=== PATIENT | female | born 1960 | race Caucasian/White ===

== ENCOUNTER 2017-07-26 21:59 | Emergency (ER) | payer OTHER ==
[~2017-07-26] VITALS: Ht 162.6 cm; Wt 97.1 kg
[~2017-07-26 21:59] MED LIST: GLUCOPHAGE XR500 MG PO; HYDROCODON-ACE1 EA10 PO; KOMBIGLYZE XR1 EAC1 PO; LEVOTHYROXINE50 MCG PO; LIPITOR20 MG PO; LISINOPRIL10 MG PO; VANIQA45 GM; VITAMIN D250000 UNIT PO
[2017-07-26] MEDS ORDERED: IBUPROFEN600 MG PO (23:26)
[2017-07-26] MEDS ORDERED: CYCLOBENZAPRINE10 MG PO (23:26)
== END 2017-07-26 23:35 | disposition home or self-care (01) ==
LOC: ED 21:59
DX: S30.0XXA Contusion of lower back and pelvis, initial encounter (principal); W22.8XXA Striking against or struck by other objects, initial encounter; E11.9 Type 2 diabetes mellitus without complications; I10 Essential (primary) hypertension; Z87.891 Personal history of nicotine dependence; Z79.899 Other long term (current) drug therapy
CPT/HCPCS: 72100; 99283

== ENCOUNTER 2020-12-08 13:58 | Inpatient (IN) | payer OTHER ==
[~2020-12-08] VITALS: Ht 162.6 cm; Wt 108.4 kg
[~2020-12-08 13:58] MED LIST changes: +CYCLOBENZAPRINE10 MG PO; +IBUPROFEN600 MG PO
[2020-12-08] MEDS ORDERED: GLIMEPIRIDE4 MG PO (16:41)
--- NOTE | 2020-12-08 20:07 | EKG ---
[facility] [address] [facility] [place], [place] [address] Signed Normal sinus rhythm Low voltage QRS Septal infarct , age undetermined Abnormal ECG No previous ECGs available Confirmed by JOSÉ LOUIS MD ([id number]) on 12/08/2020 8:07:00 PM Electronically Signed By: JOSÉ LOUIS MD 12/08/20 2007 PATIENT NAME: JYAY CAMARILLO Electrocardiogram DATE OF : 62 PHYSICIAN: JOSÉ LOUIS MD REPORT #: [id number] REPORT IS CONFIDENTIAL AND NOT TO BE RELEASED WITHOUT AUTHORIZATION
[2020-12-09] MEDS ORDERED: CLOPIDOGREL75 MG PO (10:07)
[2020-12-09] MEDS ORDERED: ATORVASTATIN CA20 MG PO (10:07)
[2020-12-09] MEDS ORDERED: ASPIRIN325 MG PO (10:08)
== END 2020-12-09 17:35 | disposition home or self-care (01) | DRG 68 ==
LOC: ED 13:58 → MS 16:32
PROVIDERS: ADMIT Internal Medicine; ATTEND Internal Medicine
DX: I65.02 Occlusion and stenosis of left vertebral artery (principal); R29.810 Facial weakness; R51.9 Headache, unspecified; R20.2 Paresthesia of skin; E11.9 Type 2 diabetes mellitus without complications; Z53.29 Procedure and treatment not carried out because of patient's decision for other reasons; I10 Essential (primary) hypertension; Z87.891 Personal history of nicotine dependence; Z79.899 Other long term (current) drug therapy; Z79.84 Long term (current) use of oral hypoglycemic drugs; Z90.49 Acquired absence of other specified parts of digestive tract; Z90.89 Acquired absence of other organs; Z90.711 Acquired absence of uterus with remaining cervical stump
CPT/HCPCS: 70450; 70496; 70498; 70551; 71045; 80048; 80053; 81001; 84484; 85025; 85610; 85730; 93005; 93010; 99285-25; J1650; J7030; Q9967; U0003

== ENCOUNTER 2021-06-21 12:02 | Emergency (ER) | payer OTHER ==
[~2021-06-21] VITALS: Ht 162.6 cm; Wt 108.0 kg
[~2021-06-21 12:02] MED LIST changes: +ASPIRIN325 MG PO; +ATORVASTATIN CA20 MG PO; +CLOPIDOGREL75 MG PO; +GLIMEPIRIDE4 MG PO
[2021-06-21] MEDS ORDERED: OXYBUTYNIN CHLOR5 MG PO (14:12)
[2021-06-21] MEDS ORDERED: ICOSAPENT ETHYL1 GM PO (14:14)
== END 2021-06-21 15:00 | disposition home or self-care (01) ==
LOC: ED 12:02
DX: I80.8 Phlebitis and thrombophlebitis of other sites (principal); E11.9 Type 2 diabetes mellitus without complications; I10 Essential (primary) hypertension; Z87.891 Personal history of nicotine dependence; Z79.899 Other long term (current) drug therapy; Z79.82 Long term (current) use of aspirin; Z79.84 Long term (current) use of oral hypoglycemic drugs
CPT/HCPCS: 99283

== ENCOUNTER 2024-08-20 11:00 | Day surgery (SDC) | payer MEDICARE, OTHER ==
[~2024-08-20] VITALS: Ht 162.6 cm; Wt 113.6 kg
[~2024-08-20 11:00] MED LIST changes: +ALOGLIPTIN25 MG PO; +ATIVAN0.5 MG PO; +ATORVASTATIN CA80 MG PO; +CLARITIN10 M2 PO; +COLLAGEN 15001 EACH PO; +ESTRACE42.5 GM VAGINAL; +EVENING PRIMRO500 M1 PO; +HYDROCORTISO453.6 G2 TOP; +IBLOOD GLUCOSE TEST STRIP 1 EA TEST VI PRN; +ICOSAPENT ETHYL1 GM PO; +LACTATED RINGER'S 1,000 ML IV SCH; +LIDOCAINE HCL 1% 5 ML SDV INJ ONE; +LIDOCAINE HCL 4% 50 ML BTL TOP SCH; +LOW DOSE ASPIRI81 MG PO; +MAGNESIUM200 MG PO; +MIDAZOLAM HCL 5 MG/5 ML VIAL IV PRN; +MOUNJARO2.5 MG/0.5 SUB-Q; +OXYBUTYNIN CHLOR5 MG PO; +PANTOPRAZOLE SO40 MG PO; +PROLASTIN1000 MG/20 IV; +SULFAMETHOXAZO1 EAC1 PO; +TRULICITY1.5 MG/0.5 SUB-Q; +VITAMIN B COMP1 EACH PO; +VITAMIN D350 MC3 PO; +VITAMIN K2 (M100 MCG PO; +ZINC50 MG PO; +fentaNYL citrate 100 MCG/2 ML VIAL IV PRN
[2024-08-20 11:17] VITALS: BP 135/76
[2024-08-20] MEDS ORDERED: fentaNYL citrate 100 MCG/2 ML VIAL ONE (11:32)
[2024-08-20] MEDS ORDERED: MIDAZOLAM HCL 5 MG/5 ML VIAL ONE (11:32)
--- NOTE | 2024-08-20 12:27 | NUR ---
08/20/24 1227 Margie Valenzuela 1220: PT ARRIVES TO PACU FROM ENDO. SHE IS SLEEPY, BUT EASILY AROUSABLE. MARÍA ELENA 1226: BS 225
[2024-08-20 13:27] VITALS: BP 112/73
--- NOTE | 2024-08-21 09:33 | OR ---
[facility] [address] [place], [place] [address] Signed DATE OF OPERATION: 08/20/2024 SURGEON: Paddy Fraser MD PREOPERATIVE DIAGNOSES: 1. Gastroesophageal reflux symptoms including spontaneous regurgitation. 2. Morbid obesity and diabetes (blood sugar 269 off Mounjaro x1 week). 3. Spontaneous regurgitation and hiatal hernia on upper GI. POSTOPERATIVE DIAGNOSES: 1. Severe ulcerative esophagitis. 2. Poor flap valve consistent with low-grade hiatal hernia. PROCEDURE: Esophagogastroduodenoscopy with biopsy. ANESTHESIA: Intravenous sedation; fentanyl 50 mcg and Versed 1.5 mg. INDICATION: This morbidly obese greater than 250 pounds, BMI of 42.9 white woman is a patient of Alem Couch MD. She has had symptoms highly suggestive of reflux disease, most often complaining of excessive "burping." She underwent an upper GI on February 24, 2023, more than a year ago showing a small sliding hiatal hernia. Esophageal motility is considered to be normal. She does not describe "heartburn." She notes that omeprazole has been helpful in the past, but less so in recent months and does not list it as an actual medicine currently. The patient has been on Mounjaro for the past seven months dominantly for diabetes control. She has noted no weight loss while on the medication. She additionally has bladder issues including incontinence for which she has had Botox administration by Dr. Astrid Edward, urologist, which has been helpful to her. The patient has a distant history of cerebrovascular accident greater than three years ago for which she takes Plavix. She is admitted at this time to undergo upper endoscopy to better characterize the issue related to her GI symptoms. She understands the risk of bleeding, infection, and perforation. FINDINGS: Severe ulcerative esophagitis was noted in the distal portion, extending proximally somewhat. It is unclear if she had actual Hunter's esophagus. There was no sign of neoplasm. There was minimal Schatzki's ring. The flap valve was poor. Stomach had small polyps probably related to PPI use in the past. The duodenum was normal. CLOtest Electronically Signed By: PADDY FRASER MD 08/21/24 0933 PATIENT NAME: JAYY CAMARILLO OPERATIVE REPORT DATE OF : 62 REPORT #: [id number] PHYSICIAN: PADDY FRASER MD PCP: ALEM COUCH MD REPORT IS CONFIDENTIAL AND NOT TO BE RELEASED WITHOUT AUTHORIZATION [facility] [address] [place], [place] [address] Signed was negative 15 minutes post procedure. DESCRIPTION OF PROCEDURE: The patient was brought to the endoscopy suite and placed in the lateral decubitus position, given intravenous sedation to the point of slurred speech and nystagmus. Low dosages were used of medication as she describes sensitivity to them. Lidocaine anesthesia was given previously. A bite block was placed. An Olympus video upper endoscope was passed in the hypopharynx. The vocal cords were normal. The scope was advanced to the esophagus, passed down the esophagus, noting extreme severe ulcerative esophagitis beginning 1/3rd the distance from the GE junction. The scope was passed through the inflamed distal esophagus into the stomach which was insufflated with air. Rugal folds were normal. There was scattered small fundic gland type polyps. Pylorus was normal. Scope was passed into the duodenum, which was essentially normal. Biopsies were taken of the duodenal bulb nevertheless. The scope was withdrawn and biopsies taken of the antrum for both DEVORA and pathologic testing. Retroflexed view was undertaken showing an effaced flap valve. No sign of large hiatal hernia, but clearly a dysfunctional flap valve. The scope was straightened and withdrawn to the distal esophagus where multiple biopsies were obtained. There may or may not be Hunter's epithelium. The inflammation was too extensive to notice fully. Additional biopsies were taken of the middle esophagus. The scope was withdrawn further and ultimately removed. CONCLUDING DIAGNOSES: 1. Severe ulcerative esophagitis, no doubt accounting for her symptoms. 2. Morbid obesity. 3. Diabetes. PLAN: We will prescribe Prilosec 20 mg p.o. b.i.d. for the next eight weeks and then thereafter 20 mg daily. She will return to see me in approximately eight weeks at which point we will review her progress with reflux symptom control. The patient would not be an operative candidate at this time for anti-reflux surgery given her extreme weight, unless and until weight improvement is noted. Paddy Fraser MD Electronically Signed By: PADDY FRASER MD 08/21/24 0933 PATIENT NAME: JAYY CAMARILLO OPERATIVE REPORT DATE OF : 62 REPORT #: [id number] PHYSICIAN: PADDY FRASER MD PCP: ALEM COUCH MD REPORT IS CONFIDENTIAL AND NOT TO BE RELEASED WITHOUT AUTHORIZATION [address] [address] Signed /MODL /[id number] cc: Dr. Alem Couch Copies: ~ Electronically Signed By: PADDY FRASER MD 08/21/24 0933 PATIENT NAME: STEFANIE CAMARILLONHUNG MARTIN OPERATIVE REPORT DATE OF : 62 REPORT #: [id number] PHYSICIAN: PADDY FRASER MD PCP: ALEM COUCH MD REPORT IS CONFIDENTIAL AND NOT TO BE RELEASED WITHOUT AUTHORIZATION
--- NOTE | 2024-08-23 09:43 | PATH ---
[facility] [address] [place], [place] [address] Signed SPECIMEN(S): A DUODENAL BIOPSY SPECIMEN(S): B ANTRUM BIOPSY SPECIMEN(S): C DISTAL ESOPHAGEAL BIOPSY SPECIMEN(S): D MID ESOPHAGEAL BIOPSY SPECIMEN SOURCE: A. DUODENAL BIOPSY B. ANTRUM BIOPSY C. DISTAL ESOPHAGEAL BIOPSY D. MID ESOPHAGEAL BIOPSY CLINICAL HISTORY: Reflux-hiatal hernia, dysphagia/severe ulcerative esophagitis FINAL PATHOLOGIC DIAGNOSIS: A. Duodenal biopsy: - Benign small bowel mucosa consistent with duodenum - Negative for specific features of celiac sprue B. Antrum biopsy: - Benign gastric mucosa - Negative for active acute inflammation, intestinal metaplasia, dysplasia, or Helicobacter organisms by routine HE stain C. Distal esophageal biopsy: - Fragments of ulcerated squamous and glandular mucosa and granulation tissue with reactive epithelial changes - Negative for specialized intestinal metaplasia - Negative for fungal organisms by PAS fungal stain D. Mid esophageal biopsy: - Fragments of ulcerated squamous mucosa with fibrinopurulent debris and reactive epithelial changes - Negative for glandular mucosa or specialized intestinal metaplasia - Negative for fungal organisms by PAS fungal stain BB MICROSCOPIC EXAMINATION: Histologic sections of all submitted blocks are examined by light microscopy. These findings, together with the gross examination, support the pathologic diagnosis. Histologic sections of all submitted blocks are examined by light microscopy. These findings, together with the gross examination, support the pathologic diagnosis. PATIENT NAME: JAYY REAL PATHOLOGY DATE OF : 62 REPORT #: [id number] PHYSICIAN: YUM[facility] PATHOLOGY PCP: KOREY COUCH MD REPORT IS CONFIDENTIAL AND NOT TO BE RELEASED WITHOUT AUTHORIZATION [facility] [address] [place], [place] [address] Signed Histologic sections of all submitted blocks are examined by light microscopy. These findings, together with the gross examination, support the pathologic diagnosis. GROSS DESCRIPTION: A. The specimen, labeled and designated "Real, duodenal biopsy," is received in formalin and consists of two browne soft tissue fragments, ranging from 0.1-0.3 cm. Entirely submitted in (A1). B. The specimen, labeled and designated "Real, antrum biopsy," is received in formalin and consists of one browne soft tissue fragment, 0.4 cm. Entirely submitted in (B1). C. The specimen, labeled and designated "Real, distal esophageal biopsy," is received in formalin and consists of six browne soft tissue fragments, ranging from 0.1-0.3 cm. Entirely submitted in (C1). D. The specimen, labeled and designated "Real, mid esophageal biopsy," is received in formalin and consists of four browne soft tissue fragments, ranging from 0.1-0.5 cm. Entirely submitted in (D1). VB (under the direct supervision of a pathologist) The Gross Description was prepared using a voice recognition system. The report was reviewed for accuracy; however, sound-alike word errors, addition and/or deletions may occur. If there is any question about this report, please contact Client Services. ADDITIONAL NOTES: Immunohistochemical and/or in situ hybridization studies if performed in this case included appropriate positive controls that reacted as expected. This test was developed and its performance characteristics determined by [facility]. It has not been cleared or approved by the U.S. Food and Drug Administration. The FDA has determined that such clearance or approval is not necessary. This test is used for clinical purposes. It should not be regarded as investigational or for research. [facility] is certified under the Clinical Laboratory Improvement Amendments of 1988 (CLIA) as qualified to perform high complexity clinical laboratory testing. PERFORMING LABORATORY: Technical component was performed by [facility], [facility] [address] (CLIA# [id number]). Professional interpretation was performed by [facility] - [address] [place] [id number] (CLIA#: [id number]). PATIENT NAME: JAYY REAL PATHOLOGY DATE OF : 62 REPORT #: [id number] PHYSICIAN: YUM[facility]KO PATHOLOGY PCP: KOREY COUCH MD REPORT IS CONFIDENTIAL AND NOT TO BE RELEASED WITHOUT AUTHORIZATION [facility] [address] [place], [place] [address] Signed Diagnostician: Oral Hansen MD Pathologist Electronically Signed 08/23/2024 Copies: ~ PATIENT NAME: JAYY REAL PATHOLOGY DATE OF : 62 REPORT #: [id number] PHYSICIAN: YUMIKO HARRIS PCP: KOREY COUCH MD REPORT IS CONFIDENTIAL AND NOT TO BE RELEASED WITHOUT AUTHORIZATION
== END 2024-08-20 13:38 | disposition home or self-care (01) ==
LOC: DS 11:00
PROVIDERS: ATTEND Surgery
PROC: 0DB68ZX Excision of Stomach, Via Natural or Artificial Opening Endoscopic, Diagnostic (ICD-10-PCS; 2024-08-20)
PROC: 0DB28ZX Excision of Middle Esophagus, Via Natural or Artificial Opening Endoscopic, Diagnostic (ICD-10-PCS; 2024-08-20)
PROC: 0DB38ZX Excision of Lower Esophagus, Via Natural or Artificial Opening Endoscopic, Diagnostic (ICD-10-PCS; 2024-08-20)
PROC: 0DB98ZX Excision of Duodenum, Via Natural or Artificial Opening Endoscopic, Diagnostic (ICD-10-PCS; principal; 2024-08-20 12:15)
DX: K21.00 Gastro-esophageal reflux disease with esophagitis, without bleeding (principal); K22.10 Ulcer of esophagus without bleeding; K22.2 Esophageal obstruction; K44.9 Diaphragmatic hernia without obstruction or gangrene; E66.01 Morbid (severe) obesity due to excess calories; I10 Essential (primary) hypertension; E11.9 Type 2 diabetes mellitus without complications; G47.30 Sleep apnea, unspecified; Z68.41 Body mass index [BMI] 40.0-44.9, adult; Z79.899 Other long term (current) drug therapy; Z95.5 Presence of coronary angioplasty implant and graft; Z87.891 Personal history of nicotine dependence; Z86.73 Personal history of transient ischemic attack (TIA), and cerebral infarction without residual deficits
CPT/HCPCS: 99153; G0500; J2250; J3010; J7121